=== PATIENT | female | born 1990 | race Caucasian/White ===

== ENCOUNTER 2017-01-17 07:41 | Day surgery (SDC) | payer BC, OTHER ==
[~2017-01-17] VITALS: Ht 149.9 cm; Wt 68.0 kg
[~2017-01-17 07:41] MED LIST: CEFAZOLIN 1 GM IVPB PREMIX 50 ML IV ONE
[2017-01-17] MEDS ORDERED: LR 1,000 ML IV.SOLN IV ONE (11:52)
[2017-01-17] MEDS ORDERED: fentaNYL CITRATE/PF 100 MCG/2 ML AMP IVP ONE (11:52)
[2017-01-17] MEDS ORDERED: GLYCOPYRROLATE 0.2 MG/ML VIAL IJ ONE (11:52)
[2017-01-17] MEDS ORDERED: SEVOFLURANE 15 MIN GAS INH ONE (11:52)
[2017-01-17] MEDS ORDERED: BUPIVACAINE /EPINEPHRINE/PF 0.25% 30 ML VIAL INJ ONE (11:52)
[2017-01-17] MEDS ORDERED: KETOROLAC TROMETHAMINE 30 MG VIAL IVP ONE (11:52)
[2017-01-17] MEDS ORDERED: PROPOFOL 200MG/ 20ML VIAL (DIPRIVAN) IV ONE (11:52)
[2017-01-17] MEDS ORDERED: DEXAMETHASONE SOD PHOSPHATE 4 MG/ML VIAL IVP ONE (11:52)
[2017-01-17] MEDS ORDERED: NS 1000 ML BAG IV ONE (11:52)
[2017-01-17] MEDS ORDERED: METOCLOPRAMIDE HCL 10 MG/2 ML VIAL IVP ONE (11:52)
[2017-01-17] MEDS ORDERED: MIDAZOLAM HCL 5 MG/5 ML VIAL IVP ONE (11:52)
[2017-01-17] MEDS ORDERED: POLYMYXIN 500,000/BACIT.10,000 UNITS in NS IRR 1 L IR ONE (12:32)
[2017-01-17] MEDS ORDERED: ATROPINE SULFATE 0.4 MG/ML VIAL ONE (12:32)
[2017-01-17] MEDS ORDERED: D5/0.45 NS 1,000 ML IV SCH (12:47)
[2017-01-17] MEDS ORDERED: HYDROcodone/ACETAMIN 5-325 MG TAB (NORCO/ VICODIN) PO PRN ×2 (13:00)
[2017-01-17] MEDS ORDERED: HYDROmorphone 1 MG INJ. 1 MG/ML AMPUL IVP PRN (13:00)
[2017-01-17] MEDS ORDERED: LR 1,000 ML IV ONE (13:26)
[2017-01-17] MEDS ORDERED: NALOXONE HCL 0.4 MG/ML AMP (NARCAN) IVP PRN (13:30)
[2017-01-17] MEDS ORDERED: DIPHENHYDRAMINE INJ 50 MG/ML VIAL IVP PRN (13:30)
[2017-01-17] MEDS ORDERED: ONDANSETRON HCL 4 MG/2 ML VIAL IVP PRN ×2 (13:30)
[2017-01-17] MEDS ORDERED: fentaNYL CITRATE/PF 100 MCG/2 ML AMP IVP PRN (13:30)
[2017-01-17] MEDS ORDERED: NALBUPHINE HCL 10 MG/ML AMP IVP PRN (13:30)
[2017-01-17] MEDS ORDERED: ePHEDrine sulfate 50 MG/ML VIAL IVP PRN (13:30)
[2017-01-17 15:59] VITALS: BP_SYST 123
== END 2017-01-17 16:55 | disposition home or self-care (01) ==
LOC: SDS 07:41 → SMU 07:42 → SDS 16:55
PROVIDERS: ATTEND Colon & Rectal Surgery
DX: L05.01 Pilonidal cyst with abscess (principal); F41.9 Anxiety disorder, unspecified; Z98.890 Other specified postprocedural states; Z80.8 Family history of malignant neoplasm of other organs or systems; Z80.42 Family history of malignant neoplasm of prostate; Z80.0 Family history of malignant neoplasm of digestive organs; Z68.30 Body mass index [BMI] 30.0-30.9, adult
CPT/HCPCS: 88304; J0461; J0690; J1100; J1885; J2250; J2704; J2765; J3010; J3490; J7030; J7120